=== PATIENT | male | born 1955 | race Caucasian/White ===

== ENCOUNTER 2020-10-27 10:39 | Outpatient (CLI) | payer BC, SELFPAY ==
--- NOTE | ~2020-10-27 | XR_ITS ---
EXAMINATION: XR hand RT min 3V EXAM DATE: 10/27/2020 10:57 INDICATION: Pain in R hand. Swelling throughout metacarpals. No known recent injury. TECHNIQUE: Right hand frontal, lateral and oblique projections obtained and reviewed. There is no pr ior study for comparison. FINDINGS: Right metacarpal bones are unremarkable. There is mild polyarticular primary osteoarthriti s. There are no bony erosions identified. There are no acute fractures or dislocations identified. There is no subcutaneous gas. There is soft tissue swelling over the hand. There are no radiopaque foreign bodies. IMPRESSION: 1. Right hand exam without acute osseous findings. 2. Soft tissue swelling. Reviewed, dictated and finalized at location A. 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
[2020-10-27 12:10] LABS: Uric Acid 9.7 mg/dL (3.5-7.2)
== END 2020-10-27 10:40 | disposition home or self-care (01) ==
PROVIDERS: PCP Physician Assistant; Visit Provider Physician Assistant
DX: M79.641 Pain in right hand (principal)
CPT/HCPCS: 36415; 73130; 84550

== ENCOUNTER 2021-01-07 15:24 | Outpatient (CLI) | payer BC, SELFPAY ==
[2021-01-07 15:48] LABS: Hematocrit 40.1 % (40.0-54.0); Hemoglobin 13.1 g/dL (14.0-18.0); Mean Corpuscular HGB Conc 32.7 g/dL (32.0-36.0); Mean Corpuscular Hemoglobin 30.3 pg (27.0-31.0); Mean Corpuscular Volume 92.8 fL (78.0-102.0); Mean Platelet Volume 10.2 fl (8.7-11.0); Platelet Count Result 283 K/mm3 (150-420); Red Blood Count 4.32 M/mm3 (4.70-6.10); Red Cell Distribution Width 14.1 % (11.6-14.4); White Blood Count 12.3 K/mm3 (4.8-10.8)
[2021-01-07 15:50] LABS: Add Urine Microscopic? YES; Appearance Urine Clear (Clear); Bilirubin Urine Negative (Negative); Blood Urine Negative (Negative); Color Urine Yellow (Yellow); Glucose Urine UA Trace (Negative); Ketones Urine Negative (Negative); Leukocyte Esterase Ur Negative (Negative); Nitrate Urine Negative (Negative); Protein Urine Negative (Negative); Specific Grav Ur 1.015 (1.010-1.020); Urobilinogen Urine 0.2 mg/dL (0.2-1.0); pH Urine 5.5 (5.0-8.0)
[2021-01-07 15:54] LABS: Creatinine Urine 37.95 mg/dL (40-278); Ur Ttl Prot Creatinine Ratio 0.37 mg/mg (0-0.20)
[2021-01-07 16:02] LABS: Bacteria Urine None seen /hpf; RBC Urine 0-2 /hpf (0-2); Squamous Epithelial Cell Urine None seen /hpf (Few); WBC Urine 0-3 /hpf (0-3)
[2021-01-07 16:59] LABS: Alanine Aminotransferase 20 U/L (16-63); Albumin Level 3.6 g/dL (3.4-5.0); Alkaline Phosphatase 79 U/L (46-116); Anion Gap 7 mmol/L (8-16); Aspartate Amino Transferase 14 U/L (15-37); Bilirubin,Total 0.5 mg/dL (0.00-1.00); Blood Urea Nitrogen 67 mg/dL (7-18); Calcium 8.9 mg/dL (8.5-10.1); Carbon Dioxide 32 mmol/L (21-32); Chloride 94 mmol/L (98-108); Erythrocyte Sedimentation Rate 39 mm/hr (0-20); Estimated Glomerular Filt Rate 46; Glucose 271 mg/dL (70-99); Osmolality Calculated 305 mOsm/kg (285-295); Potassium 4.2 mmol/L (3.5-5.1); Sodium 133 mmol/L (136-145); Total Protein 7.3 g/dL (6.4-8.2); Uric Acid 8.9 mg/dL (3.5-7.2)
[2021-01-09 11:34] LABS: Vitamin D 25 Hydroxy 20 ng/mL (30-100)
[2021-01-10 11:26] LABS: Parathyroid Intact 155 pg/mL (14-64)
== END 2021-01-07 15:25 | disposition home or self-care (01) ==
LOC: CHSLAB 15:28
PROVIDERS: PCP Physician Assistant
DX: I13.0 Hypertensive heart and chronic kidney disease with heart failure and stage 1 through stage 4 chronic kidney disease, or unspecified chronic kidney disease (principal); E11.22 Type 2 diabetes mellitus with diabetic chronic kidney disease; N18.30 Chronic kidney disease, stage 3 unspecified; I50.9 Heart failure, unspecified; R60.9 Edema, unspecified; E55.9 Vitamin D deficiency, unspecified
CPT/HCPCS: 36415; 80053; 81001; 82306; 82570; 83970; 84156; 84550; 85027; 85652; 87086

== ENCOUNTER 2021-03-14 20:22 | Emergency (ER) | payer BC, SELFPAY ==
--- NOTE | ~2021-03-14 | XR_ITS ---
EXAMINATION: XR chest 1V portable DATE: 03/14/2021 21:23 INDICATION: Dyspnea TECHNIQUE: frontal view of the chest was obtained. COMPARISON: None FINDINGS: Hazy opacity in the left lower lung zone mildly increased interstitial pattern in the right lower brooks g zone. Mild linear discoid atelectasis at the right costophrenic angle and at the lateral left midlu ng zone. No pneumothorax. The cardiomediastinal silhouette is normal. Three lead pacemaker/AICD seen with leads projecting over the expected locations of the right atrial appendage, apex of the right ve ntricle and overlying the left ventricle likely having traversed the coronary sinus. IMPRESSION: 1. Opacities in the lateral lower lung zones which could represent pulmonary edema, pneumonia, atelec tasis, small left pleural effusion or some combination thereof. Reviewed, dictated and finalized at location A. IMPRESSION: 1. Opacities in the lateral lower lung zones which could represent pulmonary ed cecilia, pneumonia, atelectasis, small left pleural effusion or some combination th ereof.
--- NOTE | ~2021-03-14 | CT_ITS ---
EXAMINATION: CTA chest PE protocol DATE: 03/14/2021 22:21 INDICATION: Dyspnea. Elevated d-dimer. TECHNIQUE: Computed tomography angiography (CTA) of the chest was performed with 100 mL Omnipaque-350 intravenous contrast timed to evaluate the pulmonary arteries. Coronal maximum intensity projection 3D-reconstructions were created by the technologist. Automated exposure control and iterative reconst ruction technique were employed. Exam dose: 761.83 mGy-cm total exam DLP. COMPARISON: 03/14/2021 portable AP chest FINDINGS: There is diagnostic contrast enhancement of the pulmonary arteries and no evidence of pulmo nary embolism. No thoracic aortic aneurysm or dissection. Cardiomegaly. There is pulmonary vascular congestion. There are mild patchy bilateral pulmonary infil trates primarily in the lingula and lower lobes. 10.5 mm middle lobe calcified pulmonary granuloma. Trace pleural effusions. Left-sided pacemaker device with leads in the right atrium, right ventricle and coronary sinus. No pe ricardial effusion. There is nonspecific mild bilateral hilar and mediastinal lymphadenopathy. Normal morphology of the adrenal glands. Old healed fracture deformities of the left rib cage. Diffuse osteopenia. Degenerative spurring of th e thoracic spine. Prominent degenerative disc disease in the lower cervical spine. No suspicious oste olytic or osteoblastic lesions are noted. IMPRESSION: No evidence of pulmonary embolism Cardiomegaly, mild congestive changes Nonspecific patchy mild bilateral pulmonary infiltrates; diffusion diagnosis includes pulmonary edema , pneumonia Bilateral hilar and mediastinal lymphadenopathy, possibly reactive Triple lead left pacemaker device Reviewed, dictated and finalized at Location [facility]. Reviewed, dictated and finalized at location A. IMPRESSION: No evidence of pulmonary embolism Cardiomegaly, mild congestive changes Nonspecific patchy mild bilateral pulmonary infiltrates; diffusion diagnosis in cludes pulmonary edema, pneumonia Bilateral hilar and mediastinal lymphadenopathy, possibly reactive Triple lead left pacemaker device
[2021-03-14 20:25] VITALS: BP 147/112; PULSE 124; PULSE 94; RESP 22; TEMP 37.4; O2SAT 60
[2021-03-14 20:35] VITALS: BP 146/71; PULSE 112; RESP 22; O2SAT 92
--- NOTE | 2021-03-14 20:59 | ECG_ITS ---
Measurements Intervals [place] Rate: P: PA: QRS: QRSD: T: QT: QTc: Interpretive Statements ATRIAL SENSE- ELECTRONIC VENTRICULAR PACEMAKER VENTRICULAR PREMATURE COMPLEX UNDERLYING SINUS TACHYCARDIA BASELINE WANDER- I, III, AVR, AVL, AVF, V1-V3 NO FURTHER INTERPRETATION IS POSSIBLE BORDERLINE ECG Electronically Signed On 03-16-2021 12:26:47 CDT by Javon Samuel D.O.
[2021-03-14 21:20] LABS: Base Excess ABG 7.6 mmol/L (0-2); HCO3 ABG 34.2 mmol/L (23-29); Oxygen Content ABG 16.1 %vol (16.0-22.0); Oxygen Saturation ABG 88.8 % (95-97); Oxyhemoglobin 87.2 % (94-100); PCO2 ABG 57.1 mmHg (35-45); PO2 ABG 57.3 mmHg (80-90); Total Hemoglobin 13.1 g/dL
[2021-03-14 21:22] LABS: Basophils Absolute Auto 0.11 K/mm3 (0.00-0.10); Basophils Percent Auto 0.6 % (0.0-1.0); Device NASAL CANNULA; Eosinophils Absolute Auto 0.07 K/mm3 (0.02-0.50); Eosinophils Percent Auto 0.4 % (1.0-6.0); Hematocrit 41.1 % (40.0-54.0); Immature Granulocyte Absolute 0.17 K/mm3 (0.00-0.00); Lymphocytes Absolute Auto 0.78 K/mm3 (1.10-4.50); Lymphocytes Percent Auto 4.6 % (18.0-42.0); Mean Corpuscular HGB Conc 31.6 g/dL (32.0-36.0); Mean Corpuscular Hemoglobin 30.8 pg (27.0-31.0); Mean Corpuscular Volume 97.4 fL (78.0-102.0); Mean Platelet Volume 10.5 fl (8.7-11.0); Modified Allen's Test Pass; Monocytes Absolute Auto 1.56 K/mm3 (0.10-0.90); Monocytes Percent Auto 9.1 % (2.0-11.0); Neutrophils Absolute Auto 14.4 K/mm3 (1.7-7.2); Neutrophils Percent Auto 84.3 % (50.0-70.0); Platelet Count Result 282 K/mm3 (150-420); Red Blood Count 4.22 M/mm3 (4.70-6.10); Red Cell Distribution Width 13.2 % (11.6-14.4); Site Drawn LEFT RADIAL; White Blood Count 17.1 K/mm3 (4.8-10.8)
[2021-03-14 21:28] VITALS: BP 154/69; PULSE 103; RESP 22; O2SAT 92
[2021-03-14] MEDS: LEVALBUTEROL NEB 1.25 MG/3 ML INHALATION (21:28)
[2021-03-14 21:37] VITALS: PULSE 104; RESP 20; O2SAT 98
[2021-03-14 21:37] LABS: Partial Thromboplastin Time 28.7 SEC (23.90-30.70); Prothrombin Time 10.5 Seconds (9.50-12.10)
[2021-03-14 21:38] LABS: D Dimer 1.09 mg/L (0.19-0.50)
[2021-03-14 21:40] LABS: Alanine Aminotransferase 22 U/L (16-63); Albumin Level 3.4 g/dL (3.4-5.0); Alkaline Phosphatase 61 U/L (46-116); Anion Gap 7 mmol/L (8-16); Aspartate Amino Transferase 12 U/L (15-37); Blood Urea Nitrogen 76 mg/dL (7-18); Calcium 9.4 mg/dL (8.5-10.1); Carbon Dioxide 34 mmol/L (21-32); Chloride 95 mmol/L (98-108); Estimated CRCL calculation 44 ml/min; Estimated Glomerular Filt Rate 38; Glucose 270 mg/dL (70-99); Magnesium 2.7 mg/dL (1.8-2.4); Osmolality Calculated 314 mOsm/kg (285-295); Potassium 3.8 mmol/L (3.5-5.1); Sodium 136 mmol/L (136-145)
[2021-03-14 21:50] LABS: Troponin I 100.5 ng/L (0.00-60.4)
[2021-03-14 23:07] LABS: Appearance Urine Clear (Clear); Bilirubin Urine Negative (Negative); Color Urine Yellow (Yellow); Glucose Urine UA Negative (Negative); Ketones Urine Trace (Negative); Leukocyte Esterase Ur Negative LEU/UL (Negative); Nitrate Urine Negative (Negative); Protein Urine 1+ (Negative); pH Urine 5.5 (5.0-8.0)
[2021-03-14 23:15] LABS: Add Urine Microscopic? YES; Bacteria Urine Trace /hpf; Blood Urine Trace-Intact (Negative); RBC Urine None seen /hpf (0-2); Squamous Epithelial Cell Urine Few /hpf (Few); WBC Urine None seen /hpf (0-3)
[2021-03-14] MEDS: ASPIRIN 81 MG CHEWABLE TABLET 324 MG PO (23:21)
[2021-03-14 23:27] LABS: Troponin I 114.4 ng/L (0.00-60.4)
--- NOTE | 2021-03-14 23:44 | ED.SOB ---
HPI - SOB/Dyspnea General Chief Complaint: Shortness of Breath/Dyspnea Stated Complaint: AMB Source: patient Mode of arrival: EMS Limitations: no limitations History of Present Illness HPI Narrative: this is a 66-year-old male that presents via EMS with some dyspnea started earlier this evening occurs at rest and with exertion with some chest heaviness midsternal with no radiation there was no diaphoresis no nausea or vomiting. The patient recently received a 2nd COVID vaccination dose, patient with a history of CHF and has an ejection fraction of less than 30% and is on a defibrillator. 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 and had a cardiac catheterization approximately 1 year ago and was told that he had occlusion but had developed collaterals. Currently nonsmoker a history of COPD and presented with O2 sats that we had decreased in the in the the 60s but during his EN route via EMS was put on 6L of oxygen currently satting at 98%. Patient also has a history of diabetes, currently on all Lantus insulin along with glipizide and metformin. MD elicited complaint: shortness of breath and chest pain Pertinent past history: COPD and congestive heart failure Onset (ago): hour(s) Timing: constant Severity: moderate Exacerbating factors: movement Relieving factors: oxygen, rest and upright position Known history of: COPD and congestive heart failure Associated symptoms: chest pain and orthopnea Related Data Home Medications Medication Instructions Recorded Confirmed carvedilol 6.25 mg PO BID 03/14/21 03/14/21 digoxin 0.125 mcg PO DAILY 03/14/21 03/14/21 ergocalciferol (vitamin D2) 50,000 unit PO PER PKG DIR 03/14/21 03/14/21 [Vitamin D2] furosemide 80 mg PO BID 03/14/21 03/14/21 gabapentin 600 mg PO TID 03/14/21 03/14/21 glimepiride 4 mg PO BID 03/14/21 03/14/21 insulin glargine [Lantus U-100 20 unit SUBCUT HS 03/14/21 03/14/21 Insulin] ketoconazole 200 mg PO DAILY 03/14/21 03/14/21 metformin 1,000 mg PO BID 03/14/21 03/14/21 nitroglycerin 0.4 mg SUBLINGUAL PER PKG DIR 03/14/21 03/14/21 Allergies Allergy/AdvReac Type Severity Reaction Status Date / Time No Known Allergies Allergy Verified 03/14/21 20:54 Review of Systems Review of Systems: All systems reviewed & are unremarkable except as noted in HPI and below PMFSH Past Medical History Medical History (Updated 03/14/21 @ 23:53 by Edouard Salcedo MD) CAD (coronary artery disease) CHF (congestive heart failure) COPD (chronic obstructive pulmonary disease) Diabetes mellitus Social History Social History Gender identity (if verbalized by the patient): Male Exam Const: General: ill appearing HENMT: Head: normal to inspection Eyes: Conjunctivae: conjunctivae normal Pupils: Equal, round and reactive pupils present EOM: EOMs intact bilaterally Direct Ophthalmoscopy: no photophobia Neck: Neck: normal visual inspection, no lymphadenopathy and no meningeal signs Chest: Chest palpation & inspection: normal inspection of the chest Resp: Auscultation: wheezes and diminished lung sounds Cardio: Rate: regular rate and tachycardic GI: GI Palp: Yes Soft to palpation Percussion: Yes normal to percussion Urinary Catheter: Urinary Catheter: patent and draining Back/Spine/Pelvis: Back: no CVA tenderness Skin: General skin exam: normal color Rashes: no rashes Neuro: General: patient oriented x3, moves all extremities, no meningeal signs and no focal motor deficits Course Course Emergency Course: reassessment patient more stable his breathing is some much easier after he received DuoNebs in in route by EMS and received Xopenex treatment here in our ER, the patient heart rate is 1 Stephen 4 with a blood pressure 147/112 current O2 sats 98%, the patient is more comfortable when he leans forward in a sitting position rather than lying back. The patient had an elevated D-dimer and
--- NOTE | 2021-03-15 00:21 | PC.NURSE ---
call to [facility] for cardiology. spoke with anitha at [phone]. awaiting call back
[2021-03-15 00:30] LABS: NT Pro B Type Natriuretic Pept 6252 pg/mL (0-125)
[2021-03-15] MEDS: HEPARIN SOD/D5W 100 UNITS/ML 25,000 UNITS/250 ML BAG 10 UNITS (00:30)
[2021-03-15] MEDS: HEPARIN SODIUM 5,000 UNITS/ML VIAL 4000 UNITS IV PUSH (00:49)
--- NOTE | 2021-03-15 01:01 | PC.NURSE ---
0050 dr lacey speaking with dr ortiz, cardio and dr ortiz hospitalist at [facility].
[2021-03-15] MEDS: FUROSEMIDE INJ 40 MG/4 ML VIAL IV PUSH (01:15)
[2021-03-15 02:04] VITALS: BP 149/71; PULSE 91; RESP 20; TEMP 37; O2SAT 95
--- NOTE | 2021-03-15 02:18 | PC.NURSE ---
pt alert and stable, food tray given ate 100%, drank 2 diet pepsi. sitting up in bedside chair. able to use urinal independently. no complaint of chest pain or shortness of breath at this time. watching tv. awaiting ambulance arrival.
--- NOTE | 2021-03-15 02:41 | PC.NURSE ---
[facility] here, pt loaded to ems cot, remains stable. no complaints voiced. denies pain.
== END 2021-03-15 02:42 | disposition short-term general hospital (02) ==
PROVIDERS: Emergency Provider Emergency Medicine
DX: I21.4 Non-ST elevation (NSTEMI) myocardial infarction (principal); I50.21 Acute systolic (congestive) heart failure; I25.10 Atherosclerotic heart disease of native coronary artery without angina pectoris; J18.9 Pneumonia, unspecified organism; J44.9 Chronic obstructive pulmonary disease, unspecified
CPT/HCPCS: 36415; 36600; 71045; 71275; 80053; 81001; 82805; 83735; 83880; 84484; 85025; 85380; 85610; 85730; 87040; 93005; 96365; 96366; 96375; 99285; A9270; J0696; J1644; J1940; J7050; J7060; Q9967

== ENCOUNTER 2021-04-14 16:00 | Outpatient (CLI) | payer BC, SELFPAY ==
[2021-04-14 16:29] LABS: Add Urine Microscopic? NO; Appearance Urine Clear (Clear); Basophils Absolute Auto 0.09 K/mm3 (0.00-0.10); Basophils Percent Auto 0.7 % (0.0-1.0); Bilirubin Urine Negative (Negative); Blood Urine Negative (Negative); Color Urine Yellow (Yellow); Eosinophils Percent Auto 4.5 % (1.0-6.0); Glucose Urine UA Negative (Negative); Hematocrit 40.3 % (40.0-54.0); Hemoglobin 12.9 g/dL (14.0-18.0); Immature Granulocyte Absolute 0.14 K/mm3 (0.00-0.00); Ketones Urine Negative (Negative); Leukocyte Esterase Ur Negative LEU/UL (Negative); Lymphocytes Percent Auto 14.2 % (18.0-42.0); Mean Corpuscular Hemoglobin 30.1 pg (27.0-31.0); Mean Corpuscular Volume 93.9 fL (78.0-102.0); Monocytes Absolute Auto 1.17 K/mm3 (0.10-0.90); Monocytes Percent Auto 8.7 % (2.0-11.0); Neutrophils Absolute Auto 9.5 K/mm3 (1.7-7.2); Neutrophils Percent Auto 70.9 % (50.0-70.0); Nitrate Urine Negative (Negative); Platelet Count Result 370 K/mm3 (150-420); Protein Urine Negative (Negative); Red Blood Count 4.29 M/mm3 (4.70-6.10); Red Cell Distribution Width 12.6 % (11.6-14.4); Specific Grav Ur 1.015 (1.010-1.020); Urobilinogen Urine 0.2 mg/dL (0.2-1.0); White Blood Count 13.4 K/mm3 (4.8-10.8)
[2021-04-14 16:33] LABS: Creatinine Urine 35.16 mg/dL (40-278); Total Protein Urine Random < 6.0 mg/dL (0.0-11.9); Ur Ttl Prot Creatinine Ratio 0.17 mg/mg (0-0.20)
[2021-04-14 16:46] LABS: Albumin Level 3.3 g/dL (3.4-5.0); Anion Gap 11 mmol/L (8-16); Blood Urea Nitrogen 63 mg/dL (7-18); Calcium 9.4 mg/dL (8.5-10.1); Carbon Dioxide 33 mmol/L (21-32); Chloride 97 mmol/L (98-108); Cholesterol 141 mg/dL (0-200); Estimated Glomerular Filt Rate 37; Glucose 81 mg/dL (70-99); HDL Direct 40 mg/dL (40-60); LDL Cholesterol Calculated 38 mg/dL (<130); Osmolality Calculated 309 mOsm/kg (285-295); Phosphorus 3.9 mg/dL (2.6-4.7); Potassium 4.1 mmol/L (3.5-5.1); Sodium 141 mmol/L (136-145); Triglycerides 316 mg/dL (0-150)
[2021-04-16 11:26] LABS: Parathyroid Intact 164 pg/mL (14-64)
[2021-04-17 11:22] LABS: Vitamin D 25 Hydroxy 33 ng/mL (30-100)
== END 2021-04-14 16:01 | disposition home or self-care (01) ==
PROVIDERS: PCP Physician Assistant
DX: N39.0 Urinary tract infection, site not specified (principal); E55.9 Vitamin D deficiency, unspecified; N18.30 Chronic kidney disease, stage 3 unspecified; I50.9 Heart failure, unspecified; J44.9 Chronic obstructive pulmonary disease, unspecified; E11.9 Type 2 diabetes mellitus without complications
CPT/HCPCS: 36415; 80061; 80069; 80162; 81003; 82306; 82570; 83036; 83970; 84156; 84550; 85025

== ENCOUNTER 2021-11-18 16:04 | Outpatient (CLI) | payer BC, SELFPAY ==
[2021-11-18 16:43] LABS: Basophils Absolute Auto 0.12 K/mm3 (0.00-0.10); Basophils Percent Auto 0.8 % (0.0-1.0); Eosinophils Absolute Auto 0.48 K/mm3 (0.02-0.50); Eosinophils Percent Auto 3.2 % (1.0-6.0); Hematocrit 45.1 % (40.0-54.0); Hemoglobin 14.7 g/dL (14.0-18.0); Immature Granulocyte Percent A 0.7 % (0.0-0.0); Lymphocytes Absolute Auto 1.66 K/mm3 (1.10-4.50); Mean Corpuscular HGB Conc 32.6 g/dL (32.0-36.0); Mean Corpuscular Hemoglobin 30.6 pg (27.0-31.0); Mean Corpuscular Volume 93.8 fL (78.0-102.0); Mean Platelet Volume 10.6 fl (8.7-11.0); Monocytes Absolute Auto 1.56 K/mm3 (0.10-0.90); Monocytes Percent Auto 10.3 % (2.0-11.0); Neutrophils Absolute Auto 11.2 K/mm3 (1.7-7.2); Platelet Count Result 287 K/mm3 (150-420); Red Blood Count 4.81 M/mm3 (4.70-6.10); Red Cell Distribution Width 12.3 % (11.6-14.4); White Blood Count 15.1 K/mm3 (4.8-10.8)
[2021-11-18 16:46] LABS: Creatinine Urine 61.99 mg/dL (40-278); Total Protein Urine Random 28.2 mg/dL (0.0-11.9); Ur Ttl Prot Creatinine Ratio 0.45 mg/mg (0-0.20)
[2021-11-18 16:47] LABS: Appearance Urine Clear (Clear); Bilirubin Urine Negative (Negative); Color Urine Light Yellow (Yellow); Glucose Urine UA 3+ (Negative); Ketones Urine Negative (Negative); Leukocyte Esterase Ur Negative LEU/UL (Negative); Nitrate Urine Negative (Negative); Protein Urine Negative (Negative); Specific Grav Ur 1.015 (1.010-1.020); Urobilinogen Urine 0.2 mg/dL (0.2-1.0); pH Urine 6.5 (5.0-8.0)
[2021-11-18 16:59] LABS: Alanine Aminotransferase 15 U/L (16-63); Albumin Level 3.6 g/dL (3.4-5.0); Alkaline Phosphatase 78 U/L (46-116); Anion Gap 10 mmol/L (8-16); Aspartate Amino Transferase < 10 U/L (15-37); Bilirubin,Total 0.5 mg/dL (0.00-1.00); Blood Urea Nitrogen 69 mg/dL (7-18); Calcium 9.1 mg/dL (8.5-10.1); Carbon Dioxide 33 mmol/L (21-32); Chloride 95 mmol/L (98-108); Estimated Glomerular Filt Rate 30; Glucose 265 mg/dL (70-99); Osmolality Calculated 315 mOsm/kg (285-295); Potassium 4.6 mmol/L (3.5-5.1); Sodium 138 mmol/L (136-145); Total Protein 7.8 g/dL (6.4-8.2)
[2021-11-18 17:26] LABS: Add Urine Microscopic? YES; Bacteria Urine None seen /hpf; Blood Urine Trace-Intact (Negative); RBC Urine None seen /hpf (0-2); Squamous Epithelial Cell Urine Rare /hpf (Few); WBC Urine None seen /hpf (0-3)
[2021-11-18 17:47] LABS: Erythrocyte Sedimentation Rate 22 mm/hr (0-20)
[2021-11-21 14:11] LABS: Vitamin D 25 Hydroxy 13 ng/mL (30-100)
[2021-11-22 19:36] LABS: Parathyroid Intact 269 pg/mL (14-64)
== END 2021-11-18 16:05 | disposition home or self-care (01) ==
LOC: CHSLAB 16:12
PROVIDERS: PCP Physician Assistant
DX: R60.9 Edema, unspecified (principal); I12.9 Hypertensive chronic kidney disease with stage 1 through stage 4 chronic kidney disease, or unspecified chronic kidney disease; N18.2 Chronic kidney disease, stage 2 (mild); E55.9 Vitamin D deficiency, unspecified; N39.0 Urinary tract infection, site not specified
CPT/HCPCS: 36415; 80053; 81001; 82306; 82570; 83970; 84156; 84550; 85025; 85652

== ENCOUNTER 2021-12-23 14:44 | Outpatient (CLI) | payer BC, SELFPAY ==
[2021-12-23 15:05] LABS: Basophils Absolute Auto 0.09 K/mm3 (0.00-0.10); Basophils Percent Auto 0.8 % (0.0-1.0); Eosinophils Absolute Auto 0.59 K/mm3 (0.02-0.50); Hematocrit 45.2 % (40.0-54.0); Hemoglobin 14.5 g/dL (14.0-18.0); Immature Granulocyte Absolute 0.11 K/mm3 (0.00-0.00); Immature Granulocyte Percent A 0.9 % (0.0-0.0); Lymphocytes Absolute Auto 1.79 K/mm3 (1.10-4.50); Lymphocytes Percent Auto 15.2 % (18.0-42.0); Mean Corpuscular HGB Conc 32.1 g/dL (32.0-36.0); Mean Corpuscular Volume 93.6 fL (78.0-102.0); Mean Platelet Volume 10.4 fl (8.7-11.0); Monocytes Absolute Auto 1.04 K/mm3 (0.10-0.90); Monocytes Percent Auto 8.8 % (2.0-11.0); Neutrophils Absolute Auto 8.2 K/mm3 (1.7-7.2); Neutrophils Percent Auto 69.3 % (50.0-70.0); Platelet Count Result 331 K/mm3 (150-420); Red Blood Count 4.83 M/mm3 (4.70-6.10); Red Cell Distribution Width 12.3 % (11.6-14.4); White Blood Count 11.8 K/mm3 (4.8-10.8)
[2021-12-23 15:16] LABS: Hemoglobin A1C 9.4 % (<5.7)
[2021-12-23 15:51] LABS: Alanine Aminotransferase 26 U/L (16-63); Albumin Level 3.7 g/dL (3.4-5.0); Alkaline Phosphatase 68 U/L (46-116); Anion Gap 10 mmol/L (8-16); Aspartate Amino Transferase 17 U/L (15-37); Bilirubin,Total 0.3 mg/dL (0.00-1.00); Blood Urea Nitrogen 82 mg/dL (7-18); Calcium 9.4 mg/dL (8.5-10.1); Carbon Dioxide 33 mmol/L (21-32); Chloride 94 mmol/L (98-108); Estimated Glomerular Filt Rate 30; Glucose 176 mg/dL (70-99); Osmolality Calculated 312 mOsm/kg (285-295); Potassium 4.9 mmol/L (3.5-5.1); Sodium 137 mmol/L (136-145); Total Protein 8.2 g/dL (6.4-8.2)
[2021-12-25 17:55] LABS: Vitamin D 25 Hydroxy 14 ng/mL (30-100)
[2021-12-26 10:17] LABS: Parathyroid Intact 268 pg/mL (14-64)
== END 2021-12-23 14:45 | disposition home or self-care (01) ==
LOC: CHSLAB 14:49
PROVIDERS: PCP Physician Assistant
DX: R80.9 Proteinuria, unspecified (principal); I12.9 Hypertensive chronic kidney disease with stage 1 through stage 4 chronic kidney disease, or unspecified chronic kidney disease; N18.4 Chronic kidney disease, stage 4 (severe); E11.9 Type 2 diabetes mellitus without complications; E55.9 Vitamin D deficiency, unspecified
CPT/HCPCS: 36415; 80053; 82306; 83036; 83970; 85025